=== PATIENT | male | born 1990 | race Hispanic/Latino ===

== ENCOUNTER 2017-01-27 21:19 | Emergency (ER) | payer MEDICAID ==
[2017-01-27 21:19] VITALS: BMI 29.9
--- NOTE | 2017-01-27 22:00 | ED PDOC ---
HPI: Psych/Substance Abuse Time Seen by Provider: 01/27/17 21:30 Chief Complaint (Nursing): Psychiatric Evaluation Chief Complaint (Provider): crisis History Per: Patient, EMS Additional History Per: Patient, EMS Additional Complaint(s): 26 y/o male history of schizoaffective disorder brought in by EMS for crisis eval. Patient states police were called on him because he got up on the roof of a building to watch the fire works and when he told him his psych history he was brought here. Patient states he has been off of his psych meds for 2 weeks. Denies suicidal/homicidal ideations, hallucinations, drug/alcohol use, acute medical complaints. Past Medical History Reviewed: Historical Data, Nursing Documentation, Vital Signs Vital Signs: Last Vital Signs Temp 98 F 01/27/17 21:20 Pulse 126 H 01/27/17 21:20 Resp 20 01/27/17 21:20 BP 142/103 H 01/27/17 21:20 Pulse Ox 99 01/27/17 21:20 - Medical History PMH: Anxiety, Depression Denies: Bipolar Disorder, Paranoia, Post Traumatic Stress Disorder, Schizophrenia - Surgical History Surgical History: No Surg Hx - Family History Family History: States: Unknown Family Hx - Living Arrangements Living Arrangements: Alone - Social History Current smoker - smoking cessation education provided: No Alcohol: Occasional Drugs: Denies - Immunization History Hx Tetanus Toxoid Vaccination: No Hx Influenza Vaccination: No Hx Pneumococcal Vaccination: No - Home Medications Home Medications: Ambulatory Orders Medication Instructions Recorded Amoxicillin/Clavulanate [Augmentin 1 tab PO BID #20 tab 05/05/14 875 MG-125 MG] Azithromycin [Zithromax Z-Marky] 250 mg PO DAILY #6 tab 05/22/14 Prozac 20 mg PO DAILY 05/22/14 Diphenhydramine Hydrochlorid 50 mg PO DAILY 07/10/14 [Benadryl] Fluoxetine Hydrochloride [Prozac] 20 mg PO DAILY 07/10/14 - Allergies Allergies/Adverse Reactions: Allergies Allergy/AdvReac Type Severity Reaction Status Date / Time lactose AdvReac DIARRHEA Verified 01/27/17 21:54 Review of Systems ROS Statement: Except As Marked, All Systems Reviewed And Found Negative Physical Exam - Reviewed Nursing Documentation Reviewed: Yes Vital Signs Reviewed: Yes - Physical Exam Appears: Positive for: Well, Non-toxic, No Acute Distress Head Exam: Positive for: ATRAUMATIC, NORMAL INSPECTION, NORMOCEPHALIC Skin: Positive for: Normal Color Eye Exam: Positive for: Normal appearance ENT: Positive for: Normal ENT Inspection Cardiovascular/Chest: Positive for: Regular Rate, Rhythm Respiratory: Positive for: Normal Breath Sounds Gastrointestinal/Abdominal: Positive for: Normal Exam Back: Positive for: Normal Inspection Extremity: Positive for: Normal ROM Neurologic/Psych: Positive for: Alert, Oriented - ECG O2 Sat by Pulse Oximetry: 99 - Progress ED Course And Treament: crisis eval Patient evaluated by licensed clinical social worker; does not meet criteria for admission at this time as per Hank Coburn. Appointment made for outpatient follow up. Return to ED for worsening/concerning symptoms. Disposition - Clinical Impression Clinical Impression: Schizoaffective disorder - Patient ED Disposition Is Patient to be Admitted: No Counseled Patient/Family Regarding: Diagnosis, Need For Followup - Disposition Disposition: Routine/Home Disposition Time: 01:31 Condition: STABLE Instructions: Schizoaffective Disorder (ED)
[2017-01-28 06:25] VITALS: BP 112/78; PULSE 78; RESP 16; TEMP 98.1; O2SAT 100
== END 2017-01-28 06:25 | disposition home or self-care (01) ==
LOC: H.ER 21:19
DX: F25.9 Schizoaffective disorder, unspecified (principal)